=== PATIENT | female | born 1940 | race Caucasian/White ===

== ENCOUNTER 2016-12-12 16:32 | Emergency (ER) | payer MEDICARE ==
[~2016-12-12] VITALS: Ht 157.5 cm; Wt 56.0 kg
[~2016-12-12 16:32] MED LIST: 1-ME1LIQ PO; AMIT50 PO; ATOR40TA PO; CLON.1 PO; DEXI60CA3 PO; HYDR-2768 PO; KCL10C PO; LEVO.025 PO; LORTA5 PO; MAGN250T13 PO; METH2.5 PO; ONDA4TAB7 PO; VITA100020 SL
[2016-12-12 16:37] VITALS: BP 134/87; PULSE 68; RESP 22; TEMP 97.9; O2SAT 99
[2016-12-12] MEDS ORDERED: AMOX875T PO (16:54)
[2016-12-12] MEDS ORDERED: LEVO75TA3 PO (16:54)
[2016-12-12] MEDS ORDERED: AMLO2.5T PO (16:54)
[2016-12-12] MEDS ORDERED: POTA-163 PO (16:54)
[2016-12-12] MEDS ORDERED: ZOFR4TAB PO (16:54)
[2016-12-12] MEDS ORDERED: FOLI1TAB4 PO (16:54)
[2016-12-12] MEDS ORDERED: MAGN250T10 PO (16:54)
[2016-12-12] MEDS ORDERED: CLON0.1T PO (16:54)
[2016-12-12] MEDS ORDERED: METH0.35 IM (17:00)
[2016-12-12] MEDS ORDERED: SODIUM CHLORIDE 0.9% FLUSH 10 ML FLUSH IV FLUSH PRN (17:00)
[2016-12-12] MEDS ORDERED: DEXAMETHASONE SOD PHOS 4 MG/ML VIAL IV PUSH ONE (17:00)
[2016-12-12 17:03] VITALS: O2SAT 98
--- NOTE | 2016-12-12 17:07 | PD ---
HPI Chief Complaint: Flank/Kidney Pain Time Seen by Provider: 16:51 Travel History International Travel<30 days: No Contact w/Intl Traveler<30days: No Traveled to known affect area: No History of Present Illness HPI Patient is a 76-year-old female here with complaint of abdominal pain and URI symptoms. Has a history of asthma, bronchitis. States she's been ill for the last 1-1.5 weeks with cough, cold, chest congestion and wheezing. She was prescribed antibiotics, MDI and states that these have not been helping. Her symptoms persisted, prompting her to go to urgent care today. While at urgent care patient complained of some abdominal pain, right lower quadrant. This has been present for the last 3 days. It is sharp, slightly made worse with movement. She denies any urinary symptoms, bowel symptoms, fevers, chills. Because of her abdominal pain she was referred here from urgent care for further evaluation. PFSH Past Medical History Arthritis: Yes (RHEUMATOID ARTHRITIS) Asthma: Yes Cancer: No Cardiovascular Problems: No High Cholesterol: Yes Diabetes: No Diminished Hearing: No Diverticulitis: Yes Fibromyalgia: Yes GERD: Yes Genitourinary: Yes (bladder repair, leakage) Hepatitis: No Hiatal Hernia: No Hypertension: Yes Immune Disorder: No Musculoskeletal: No Neurologic: No Psychiatric: No Reproductive: No Respiratory: Yes (asthma) Immunizations Current: Yes Migraines: Yes Thyroid Disease: Yes (HYPOTHYROID) Tetanus Vaccination: < 5 Years Influenza Vaccination: Yes : 3 Para: 3 Past Surgical History AICD: No Appendectomy: Yes Genitourinary Surgery: Yes (cystostomy) Gynecologic Surgery: Yes (hysterectomy) Hysterectomy: Yes Joint Replacement: No Oral Surgery: Yes (BILATERAL SHOULDER REPAIR, RIGHT KNEE REPAIR, ) Pacemaker: No Other Surgery: Yes (SINUS SURGERY) Social History Alcohol Use: Yes (SOCIAL) Tobacco Use: No Substance Use: No Allergies-Medications (Allergen,Severity, Reaction): Coded Allergies: Hydrochlorothiazide (Verified Allergy, Severe, "LOST ENZYMES", 12/12/16) Lisinopril (Verified Allergy, Severe, Edema, 12/12/16) ANGIOEDEMA Reported Meds & Prescriptions Reported Meds & Active Scripts Active Reported Rasuvo (Methotrexate (Antirheumatic)) 20 Mg/0.4 Ml Inj 1 Unit IM WEEKLY Folate (Folic Acid) 1 Mg Tab 1 Mg PO DAILY Magnesium Gluconate 250 Mg Tab 133 Mg PO DAILY Zofran (Ondansetron HCl) 4 Mg Tab 4 Mg PO Q6HR PRN Amoxicillin 875 Mg Tab 875 Mg PO BID Potassium Chloride ER (Potassium Chloride) 20 Meq Tab 20 Meq PO DAILY Clonidine (Clonidine HCl) 0.1 Mg Tab 0.1 Mg PO TID Amlodipine (Amlodipine Besylate) 2.5 Mg Tab 2.5 Mg PO DAILY Levothyroxine (Levothyroxine Sodium) 75 Mcg Tab 75 Mcg PO DAILY Review of Systems Except as stated in HPI: all other systems reviewed are Neg Physical Exam Narrative GENERAL: Elderly female in no acute distress SKIN: Focused skin assessment warm/dry. HEAD: Normocephalic. EYES: No scleral icterus. No injection or drainage. ENT: No nasal bleeding or discharge. Mucous membranes pink and moist. NECK: Supple CARDIOVASCULAR: Regular rate and rhythm. No murmur appreciated. RESPIRATORY: No accessory muscle use. Clear to auscultation. Breath sounds equal bilaterally. GASTROINTESTINAL: Abdomen soft, right lower quadrant tenderness to palpation without rebound or guarding. No CVA tenderness. MUSCULOSKELETAL: Normal gait NEUROLOGICAL: Awake and alert. Normal speech. PSYCHIATRIC: Appropriate mood and affect; insight and judgment normal. Data Data Last Documented VS Vital Signs Date Time Temp Pulse Resp B/P Pulse Ox O2 Delivery O2 Flow Rate FiO2 12/12/16 17:03 98 Room Air 12/12/16 16:37 97.9 68 22 134/87 Orders Complete Blood Count With Diff (12/12/16 16:57) Comprehensive Metabolic Panel (12/12/16 16:57) Lipase (12/12/16 16:57) Urinalysis - C+S If Indicated (12/12/16 16:57) Ct Abd/Pel W/O Iv Contrast (12/12/16 16:57) Iv Access Insert/Monitor (12/12/16 16:57) Ecg Monitoring (12/12/16 16:57) Oximetry (12/12/16 16:57) Sodium Chloride 0.9% Flush (Ns Flush) (12/12/16 17:00) Chest, Single Ap (12/12/16 16:57) Dexamethasone Inj (Decadron Inj) (12/12/16 17:00) Potassium Chloride (Kcl) (12/12/16 17:45) Labs Laboratory Tests Test 12/12/16 17:05 White Blood Count 7.2 TH/MM3 Red Blood Count 3.33 MIL/MM3 Hemoglobin 12.5 GM/DL Hematocrit 35.8 % Mean Corpuscular Volume 107.6 FL Mean Corpuscular Hemoglobin 37.6 PG Mean Corpuscular Hemoglobin 34.9 % Concent Red Cell Distribution Width 13.8 % Platelet Count 423 TH/MM3 Mean Platelet Volume 7.2 FL Neutrophils (%) (Auto) 60.5 % Lymphocytes (%) (Auto) 25.8 % Monocytes (%) (Auto) 9.4 % Eosinophils (%) (Auto) 3.2 % Basophils (%) (Auto) 1.1 % Neutrophils # (Auto) 4.3 TH/MM3 Lymphocytes # (Auto) 1.9 TH/MM3 Monocytes # (Auto) 0.7 TH/MM3 Eosinophils # (Auto) 0.2 TH/MM3 Basophils # (Auto) 0.1 TH/MM3 CBC Comment DIFF FINAL Differential Comment Urine Collection Type CLEAN CATCH Urine Color YELLOW Urine Turbidity SLIGHT Urine pH 6.0 Urine Specific Axis 1.028 Urine Protein TRACE mg/dL Urine Glucose (UA) NEG mg/dL Urine Ketones TRACE mg/dL Urine Occult Blood NEG Urine Nitrite NEG Urine Bilirubin NEG Urine Leukocyte Esterase TRACE Urine WBC 3-5 /hpf Urine Squamous Epithelial > 8 /hpf Cells Urine Amorphous Sediment MOD Microscopic Urinalysis Comment CULT NOT INDICATED Urine Collection Time 1705 Sodium Level 136 MEQ/L Potassium Level 3.3 MEQ/L Chloride Level 100 MEQ/L Carbon Dioxide Level 25.2 MEQ/L Anion Gap 11 MEQ/L Blood Urea Nitrogen 14 MG/DL Creatinine 0.79 MG/DL Estimat Glomerular Filtration 70 ML/MIN Rate Random Glucose 120 MG/DL Calcium Level 9.1 MG/DL Total Bilirubin 0.4 MG/DL Aspartate Amino Transf 37 U/L (AST/SGOT) Alanine Aminotransferase 42 U/L (ALT/SGPT) Alkaline Phosphatase 112 U/L Total Protein 7.0 GM/DL Albumin 3.2 GM/DL Lipase 218 U/L [facility] Medical Decision Making Medical Screen Exam Complete: Yes Emergency Medical Condition: Yes Medical Record Reviewed: Yes Differential Diagnosis 76-year-old female here with 1-1.5 weeks of cough, cold, chest congestion not improved after antibiotics, in 3 days of sharp right lower quadrant abdominal pain. Differential includes asthma exacerbation, pneumonia, bronchitis, upper respiratory infection, influenza, ureterolithiasis, UTI/pyelonephritis, appendicitis, right sided diverticulitis, rectus muscle strain due to frequent coughing. Narrative Course Patient placed on monitor, IV established and blood obtained. She declines analgesics at this time. Given 8 mg Decadron for asthma exacerbation. Portal chest x-ray obtained that by my read shows no acute abnormalities. CBC, CPK, lipase, urinalysis notable for potassium 3.3, replaced with 20 mEq orally. Trace leukocyte esterase but contaminated specimen with epithelial cells. CT abdomen and pelvis showed no evidence of stone or obstruction of either kidney. 17 mm spontaneously dense mass of the lower pole left kidney. Hyperdense cyst versus solid mass. Recommend ultrasound versus MRI. Enlarged severely fatty infiltrated liver. After sclerotic aorta without aneurysm. Pancreatic tail calcifications without evidence of acute pancreatitis. Disc space narrowing with vacuum phenomena at L5/S1. 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 Patient was reassured, I suspect her abdominal pain is likely strain from her recent upper respiratory infection, asthma exacerbation coughing. Will be discharged home. Diagnosis Primary Impression: Asthma exacerbation Additional Impressions: Bronchitis Strain of rectus abdominis muscle Qualified Code: S39.011A - Strain of rectus abdominis muscle, initial encounter Referrals: Primary Care Physician call for appointment Additional Instructions: You were given a dose of steroids in the emergency department in your IV. These will last for 3-4 days and therefore you do not need to go home with any steroids by mouth. Finish antibiotics as previously prescribed. Follow-up with primary care physician as outpatient as discussed for further imaging of the left kidney. Med/Other Pt SpecificInfo: No Change to Meds Disposition: 01 DISCHARGE HOME Condition: Stable Madyson Jo MD December 12, 2016 17:07
[2016-12-12 17:18] LABS: AUTOMATED NEUTROPHIL # 4.3 TH/MM3 (1.8-7.7); BASOPHIL # 0.1 TH/MM3 (0-0.2); BASOPHIL % 1.1 % (0.0-2.0); EOSINOPHIL # 0.2 TH/MM3 (0-0.4); EOSINOPHIL % 3.2 % (0.0-4.0); HEMATOCRIT 35.8 % (35.0-46.0); HEMO FLAGS DIFF FINAL; LYMPH % 25.8 % (9.0-44.0); LYMPHOCYTE # 1.9 TH/MM3 (1.0-4.8); MEAN CELL VOLUME 107.6 FL (80.0-100.0); MEAN CORPUSCULAR HEMOGLOBIN 37.6 PG (27.0-34.0); MEAN CORPUSCULAR HGB CONC 34.9 % (32.0-36.0); MONO % 9.4 % (0.0-8.0); NEUT % 60.5 % (16.0-70.0); PLATELET COUNT 423 TH/MM3 (150-450); RED BLOOD COUNT 3.33 MIL/MM3 (4.00-5.30); RED CELL DISTRIBUTION WIDTH 13.8 % (11.6-17.2); WHITE BLOOD COUNT 7.2 TH/MM3 (4.0-11.0)
--- NOTE | 2016-12-12 17:20 | RADHPO ---
EXAM DATE/TIME: 12/12/2016 17:11 [facility] COMPARISON: No previous studies available for comparison. INDICATIONS : Short of breath, cough, chest pains with cough MEDICAL HISTORY : Hypertension. SURGICAL HISTORY : None. ENCOUNTER: Initial ACUITY: 2 weeks PAIN SCORE: 10/10 LOCATION: Bilateral chest FINDINGS: A single view of the chest demonstrates the lungs to be symmetrically aerated without evidence of mas s, infiltrate or effusion. The cardiomediastinal contours are unremarkable. Osseous structures are intact. CONCLUSION: No evidence of acute cardiopulmonary disease. Luis Bob MD on December 12, 2016 at 17:18 Board Certified Radiologist. This report was verified electronically.
[2016-12-12 17:22] LABS: BLOOD, URINE NEG (NEG); GLUCOSE,URINE NEG (NEG); KETONE, URINE TRACE mg/dL (NEG); NITRITE,URINE NEG (NEG)
[2016-12-12 17:26] LABS: CHLORIDE 100 MEQ/L (98-107); POTASSIUM 3.3 MEQ/L (3.5-5.1); SODIUM (NA) 136 MEQ/L (136-145)
[2016-12-12 17:29] LABS: METHOD OF COLLECTION CLEAN CATCH; URINE COLOR YELLOW (YELLW/STRAW)
[2016-12-12 17:30] LABS: ANION GAP 11 MEQ/L (5-15); BICARBONATE 25.2 MEQ/L (21.0-32.0)
[2016-12-12 17:31] LABS: BLOOD UREA NITROGEN 14 MG/DL (7-18); COMMENT (UR) CULT NOT INDICATED; COMMENT2 (UR) MUCOUS PRESENT; CULTURE IF INDICATED CULT NOT INDICATED; SQUAMOUS EPITHELIAL CELL URINE > 8 /hpf (0-5)
[2016-12-12 17:33] LABS: ALT (GPT) 42 U/L (10-53); AST (GOT) 37 U/L (15-37); GLOMERULAR FILTRATION RATE 70 ML/MIN (>89)
[2016-12-12 17:35] LABS: TOTAL BILIRUBIN ADULT 0.4 MG/DL (0.2-1.0)
[2016-12-12 17:36] LABS: ALKALINE PHOSPHATASE 112 U/L (45-117)
--- NOTE | 2016-12-12 17:43 | RADHPO ---
EXAM DATE/TIME: 12/12/2016 17:16 [facility] COMPARISON: No previous studies available for comparison. INDICATIONS : intermittent right flank and lower quadrant pain. Evaluate for kidney stone. ORAL CONTRAST: No oral contrast ingested. RADIATION DOSE: 9.93 CTDIvol (mGy) MEDICAL HISTORY : Hypertension. Diverticulitis. Gastroesophageal reflux disease. SURGICAL HISTORY : Appendectomy. Hysterectomy.Cystostomy. ENCOUNTER: Initial ACUITY: 2 weeks PAIN SCALE: 0/10 LOCATION: Right lower quadrant flank TECHNIQUE: Volumetric scanning of the abdomen and pelvis was performed. Using automated exposure control and ad justment of the mA and/or kV according to patient size, radiation dose was kept as low as reasonably achievable to obtain optimal diagnostic quality images. FINDINGS: Liver has severe, diffuse fatty infiltration. It measures at least 20 cm craniocaudal. No focal hepat ic lesions seen. CT appearance of the gallbladder within normal limits. A few scattered pancreatic calcifications are noted, mainly body and tail. Noncontrast appearance of the spleen and right kidney within normal limits. There is a 18 mm cyst of the mid zone of the left k idney and a 17 mm intermediate density mass anteriorly of the lower pole the left kidney. No obstruction or inflammatory changes are seen of the gastrointestinal tract. Previous appendectomy. Previous hysterectomy and I believe bilateral salpingo-oophorectomy. No ascites or loculated fluid. No lymphadenopathy. Tortuous and mildly atherosclerotic abdominal aort a and iliac arteries is seen. No abdominal aortic aneurysm. Severe degenerative disc disease with vacuum phenomena seen in the lower lumbar spine at L5/S1. 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 CONCLUSION: 1. No stone or obstruction of either kidney. 2. There is a 17 mm spontaneously dense mass of the lower pole of the left kidney. Differential inclu mingo a hyperdense cyst and solid mass. Attempted nonemergent further characterization is recommended. Ultrasound is worth a try but the patient may ultimately need an MRI with and without contrast. 3. Enlarged and severely fatty infiltrated liver. 4. Atherosclerotic abdominal aorta without aneurysm. 5. A few calcifications are seen of the pancreatic body and tail, usually related to chronic pancreat itis. No evidence of acute pancreatitis. 6. Severe disc space narrowing with vacuum phenomena at L5/S1. 7. 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 Luis Bob MD on December 12, 2016 at 17:34 Board Certified Radiologist. This report was verified electronically.
[2016-12-12] MEDS ORDERED: POTASSIUM CHLORIDE 20 MEQ CONTROLLED RELEASE TAB PO ONE (17:45)
[2016-12-12 18:02] VITALS: BP 146/78
== END 2016-12-12 18:07 | disposition home or self-care (01) ==
LOC: PHED 16:32
DX: J45.901 Unspecified asthma with (acute) exacerbation (principal); J40 Bronchitis, not specified as acute or chronic; I10 Essential (primary) hypertension; S39.011A Strain of muscle, fascia and tendon of abdomen, initial encounter; M06.9 Rheumatoid arthritis, unspecified; E03.9 Hypothyroidism, unspecified; E78.00 Pure hypercholesterolemia, unspecified; M79.7 Fibromyalgia
CPT/HCPCS: 71010; 74176; 80053; 81001; 83690; 85025; 96374; 99284; J1100